=== PATIENT | male | born 1950 ===

== ENCOUNTER 2018-01-27 08:08 | Outpatient (CLI) | payer MEDICARE ==
--- NOTE | 2018-01-27 08:29 | XRay Report ---
XRAY LEFT HAND THREE VIEWS: 01/27/18 08:08:00 CLINICAL: Left hand pain. FINDINGS: No fracture or dislocation. Moderate osteoarthritis involving the free joints of the thumb and the distal IP joints of the index and middle fingers. Lesser degree of arthritis involving the fourth and fifth digits. No erosions. Normal soft tissues. The carpal bones are intact. The distal radius and almost are normal. IMPRESSION: Osteoarthritis with greater involvement of the thumb.
== END 2018-01-27 08:09 | disposition home or self-care (01) ==
LOC: SPVIMAG 08:08
PROVIDERS: ATTEND Orthopaedic Surgery
DX: M18.9 Osteoarthritis of first carpometacarpal joint, unspecified (principal)

== ENCOUNTER 2018-03-21 11:13 | Outpatient (CLI) | payer MEDICARE ==
--- NOTE | 2018-03-21 12:07 | Ultrasound Report ---
Renal ultrasound: Hematuria. The right kidney measures 10.5 cm in length. The central collecting system is markedly distended. The parenchymal thickness is 9 mm. Scattered echodensities are identified but no definite shadowing. No solid mass noted. The left kidney measures 10.5 cm in length but has a parenchymal thickness of 18 mm. A single echodensity present in the lower third of the kidney. The echo pattern is otherwise unremarkable. Imaging of the urinary bladder appears normal. Impression: Probable bilateral renal calculi with right hydronephrosis.
== END 2018-03-21 11:14 | disposition home or self-care (01) ==
LOC: SPVWC 11:13
PROVIDERS: ATTEND Internal Medicine
DX: R31.9 Hematuria, unspecified (principal)
CPT/HCPCS: 76770